=== PATIENT | male | born 1940 | race Caucasian/White ===

== ENCOUNTER → 2016-08-25 | Outpatient (CLI) | payer MEDICARE, BC ==
[~2016-08-25] MED LIST: AMBIEN 10MG10 MG PO; ASPIR-LOW81 MG PO; ASPIRIN E.C. 8181 MG PO; ATIVAN 0.50.5 MG/TAB PO; BYSTOLIC5 MG PO; CENTRUM SILVER1 TA1 PO; CEPHALEXIN500 M1 PO; CLOPIDOGREL PO; DOXYCYCLINE 10100 MG PO; EXCEDRIN 250 MG1 TAB PO; EXCEDRIN1 TAB PO; FISH OIL CONC1000 MG PO; GLUCOPHAGE1000 MG PO; GLUCOPHAGE500 MG/TAB PO; KLOR-CON 1010 MEQ PO; LEVAQUIN 750MG750 M1 PO; LEXAPRO 10MG10 MG PO; LIPITOR 10MG10 MG PO; LISINOPRIL10 MG PO; LODINE400 MG PO; LOPERAMIDE2 MG PO; NEXIUM40 MG PO; NIASPAN 500MG500 MG PO; NITROQUICK0.4 MG SL; NITROSTAT0.4 MG/TAB SL; NORVASC 5MG5 MG/TAB PO; OMNICEF 300MG300 MG PO; PLAVIX 75MG TAB75 MG PO; PRILOSEC 20MG20 MG PO; TOPROL XL 50MG50 MG PO; TRIAMTERENE W/H1 CAP PO; TRIAMTERENE/HCT1 TAB PO; TRIAMTERENE/HCTZ PO; TUSS PO; TYLENOL 500MG500 MG PO; VITAMIN C500 MG PO; ZOCOR 40MG40 MG PO; ZOCOR40 MG PO; klor-con PO
== END ==
LOC: COL.RAD 12:34
DX: E78.00 Pure hypercholesterolemia, unspecified (principal); M51.34 Other intervertebral disc degeneration, thoracic region

== ENCOUNTER → 2018-10-16 | Outpatient (CLI) | payer MEDICARE, BC ==
[2018-10-16 14:49] LABS: BASO # 0.1 (0.0-0.2); BASO % 0.8 % (0.0-2.0); EOS # 0.1 (0.0-0.7); EOS % 1.5 % (0-4.0); GRAN # 4.4 (1.4-6.5); GRAN % 66.3 % (42.2-75.2); HEMATOCRIT 43.6 % (42.0-52.0); HEMOGLOBIN 14.7 g/dl (13.5-18.0); LYMPH # 1.2 (1.2-3.4); LYMPH % 18.8 % (20.0-51.0); MEAN CELL VOLUME 86 fl (80.0-100.0); MEAN CORPUSCULAR HEMOGLOBIN 29 pg (27.0-31.0); MEAN CORPUSCULAR HGB CONC 34 g/dl (33.0-37.0); MEAN PLATELET VOLUME 9.8 fl (7.4-10.4); MONO # 0.8 (0.1-0.6); MONO % 12.1 % (1.7-9.3); PLATELET COUNT 253 K/mm3 (130-400); RED BLOOD COUNT 5.05 M/mm3 (4.20-5.60); REDCELL DISTRIBUTION WIDTH-CV 13.3 % (11.5-14.5)
[2018-10-16 14:59] LABS: ANION GAP 12 mmol/L (7-16); BLOOD UREA NITROGEN 15 mg/dL (9-20); CALCIUM 8.2 mg/dL (8.4-10.2); CARBON DIOXIDE 27 mmol/L (22-30); CHLORIDE 100 mmol/L (98-107); CREATININE, serum 1.04 mg/dL (0.66-1.25); GLUCOSE 124 mg/dL (74-106); SODIUM 138 mmol/L (137-145)
[2018-10-16 15:10] LABS: TROPONIN-I < 0.012 ng/mL (0.000-0.035)
[2018-10-16 15:11] LABS: POTASSIUM 3.7 mmol/L (3.4-5.0)
== END ==
LOC: COL.LAB 13:36
PROVIDERS: Emergency Medicine
DX: I25.10 Atherosclerotic heart disease of native coronary artery without angina pectoris (principal); R06.02 Shortness of breath

== ENCOUNTER 2018-12-02 16:39 | Inpatient (IN) | payer MEDICARE, BC ==
[2018-12-02] VITALS (169 sets, daily range): BP systolic 113–157; BP diastolic 73–86; PULSE 84–94; TEMP 98.7–99.2; O2SAT 83–97
[~2018-12-02] VITALS: Ht 172.7 cm; Wt 84.8 kg
--- NOTE | 2018-12-02 18:59 | NUR ---
Pt arrived to room via cart with EMS. Oriented to room. Called Dr. Carreon, he will be here shortly to see pt. Will give bedside shift report to nightshift nurse who will resume care.
--- NOTE | 2018-12-02 19:18 | NUR ---
Dr. Carreon at bedside to see patient. Went over plan of care. Would like an echo completed this evening. Dr. Ochoa to read results.
--- NOTE | 2018-12-02 19:20 | NUR ---
Kimberly RN called radiology to request echo to be completed this evening. retail merchandiser technician to call application software developer celluloid trimmer.
--- NOTE | 2018-12-02 20:52 | NUR ---
Radiologist brittney told this nurse that echo's are no longer done zoning assistant on weekends after 12:00. Dr. Ochoa notified.
--- NOTE | 2018-12-02 21:15 | NUR ---
Dr. Ochoa here to complete Echo himself.
[2018-12-02 23:00] LABS: PARTIAL THROMBOPLASTIN TIME 36.1 SECONDS (26.0-37.0)
--- NOTE | 2018-12-02 23:30 | NUR ---
02 decreasing to upper 89-90%. Increased 02 to 4L NC. No reports of increasing dyspnea. Will continue to monitor.
[2018-12-03] VITALS (435 sets, daily range): BP systolic 145–157; BP diastolic 70–90; PULSE 84–88; TEMP 98.1–98.9; O2SAT 90–100
[2018-12-03 00:11] LABS: HEMATOCRIT 40.9 % (42.0-52.0); MEAN CELL VOLUME 86 fl (80.0-100.0); MEAN CORPUSCULAR HEMOGLOBIN 30 pg (27.0-31.0); MEAN CORPUSCULAR HGB CONC 34 g/dl (33.0-37.0); MEAN PLATELET VOLUME 9.5 fl (7.4-10.4); PLATELET COUNT 206 K/mm3 (130-400); RED BLOOD COUNT 4.75 M/mm3 (4.20-5.60); REDCELL DISTRIBUTION WIDTH-CV 13.2 % (11.5-14.5)
[2018-12-03 03:18] LABS: INR 1.3 (0.8-3.0); PROTHROMBIN TIME 14.3 SECONDS (9.7-12.8)
[2018-12-03] MEDS ORDERED: VASCEPA1 GM PO (04:30)
[2018-12-03] MEDS ORDERED: NORCO 325 MG-101 TAB PO (06:30)
[2018-12-03] MEDS ORDERED: PRINIVIL20 MG PO (06:32)
[2018-12-03] MEDS ORDERED: IMDUR 30MG30 MG/TAB (06:36)
--- NOTE | 2018-12-03 07:10 | NUR ---
Bedside shift report received from JENN Lebron. Pt in bed resting, appears to be sleeping, will continue to monitor
[2018-12-03 07:33] LABS: CREATININE, serum 0.86 (0.66-1.25); POTASSIUM 3.6 mmol/L (3.4-5.0)
--- NOTE | 2018-12-03 09:22 | NUR ---
Assessment charted. PT in bed resting, up to bathroom and back to bed with SBA, states he feels much less "winded" today getting up and back to bathroom. Pain is only on deep inspiration to R flank area. TEDs on. Heparin drip at 13.2 ml/hr to L a/c. Denies needs, taking PO well. Will continue to monitor.
[2018-12-03] MEDS ORDERED: BYSTOLIC20 MG PO (10:06)
[2018-12-03] MEDS ORDERED: TOVIAZ8 MG PO (11:42)
[2018-12-03] MEDS ORDERED: NORVASC 5MG5 MG/TAB PO (11:48)
[2018-12-03] MEDS ORDERED: PRIL40 PO (11:51)
--- NOTE | 2018-12-03 13:34 | NUR ---
Patient lives at home with his (Judith) in [place], [place] and plans to return home upon discharge. 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 Patient has no anticipated durable medical needs at this time, his primary care physician is Dr. Santy Carreon along with care from Dr. Ashanti Adam, his pharmacy is [facility] ([place]), and he does not have advance directives on file at this time. No further needs at this time and social science instructor will follow as needed.
--- NOTE | 2018-12-03 16:11 | NUR ---
Report called to JENN Zendejas on surgical who will resume care of pt. Transported pt via w/c with in w/c up to floor and room. Oriented to room, brought all bleongings. Called Dr. Carreon to update with room change. surgical to resume care.
--- NOTE | 2018-12-03 16:15 | NUR ---
Resting in bed without complaint. O2 on. Heparin drip infusing at 13.2 cc/hr. Family in room.
--- NOTE | 2018-12-03 18:00 | NUR ---
States has a little pain in right rib area. Lungs clear to auscultation. Repositions self. Denies shortness of breath.
--- NOTE | 2018-12-03 19:53 | NUR ---
Pt resting in bed, shift assessments complete, left Pt call light in reach, bed in lowest position.
[2018-12-04] VITALS: BP 152/72; PULSE 84; TEMP 98.1
[2018-12-04 03:52] VITALS: BP 152/82; PULSE 85; TEMP 98.1
--- NOTE | 2018-12-04 05:51 | NUR ---
Pt slept well during the night, VS have remained stable, Heparin drip rate was changed to reflect XA.
[2018-12-04 09:32] VITALS: BP 137/71; PULSE 84; TEMP 97.5
--- NOTE | 2018-12-04 09:40 | NUR ---
Patient resting in bed at this time following eating his breakfast. Patient independent with eating. Patient had pulled IV from left AC this morning when going to the bathroom and new one was placed to his left hand - it took only one attempt and patient tolerated with only minimal discomfort reported. Patient denied pain this morning. Denied questions at this time. Will continue to monitor.
[2018-12-04 10:00] VITALS: BP 127/65; PULSE 85; TEMP 97.3
--- NOTE | 2018-12-04 13:09 | NUR ---
Initial visit; Patient thanked Solvent Station Attendant for looking in on him and offering prayer and encouragement. Solvent Station Attendant will keep patient in her prayers.
[2018-12-04 15:49] VITALS: BP 143/82; PULSE 86; TEMP 98.5
--- NOTE | 2018-12-04 19:35 | NUR ---
Discharge instructions reviewed with patient and son, verbalized understanding. Discharged via wheelchair to auto/home with family at 1930.
[2018-12-05 15:39] LABS: COAG INR 1.2 (0.9-1.2)
[2018-12-06 08:31] LABS: FACTOR V LEIDEN MUTATION B Negative (Negative); PARTIAL THROMBLASTIN TIME 39.8 seconds (25.0-35.0); PT G20210A MUTATION B Negative (Negative)
[2018-12-06 12:33] LABS: LUPUS ANTICOAGULANT INR 1.1 (()); LUPUS ANTICOAGULANT PT 11.7 sec (())
[2018-12-08 08:05] LABS: ANTI-THROMBIN III 74 % (72-128)
[2018-12-08 08:10] LABS: PROTEIN C ACTIVITY 121 % (70-150)
== END 2018-12-04 19:30 | disposition home or self-care (01) | DRG 176 ==
LOC: IMCU 16:39 → ICU 18:57 → SURG 18:57
PROVIDERS: Internal Medicine Interventional Cardiology; ADMIT Emergency Medicine
DX: I26.92 Saddle embolus of pulmonary artery without acute cor pulmonale (principal); I10 Essential (primary) hypertension; I25.10 Atherosclerotic heart disease of native coronary artery without angina pectoris; Z95.5 Presence of coronary angioplasty implant and graft; Z85.46 Personal history of malignant neoplasm of prostate; E11.9 Type 2 diabetes mellitus without complications; Z95.0 Presence of cardiac pacemaker
CPT/HCPCS: J1644; Q9967